=== PATIENT | female | born 1985 | race Caucasian/White ===

== ENCOUNTER 2018-02-08 13:56 | Emergency (ER) | payer OTHER ==
--- NOTE | 2018-02-08 14:19 | ER ---
Nurse's Notes [facility] Name: Lisbeth Morrow Age: 32 yrs Sex: Female : 1985 Arrival Date: 02/08/2018 Time: 13:59 Bed 23 Private MD: Jacoby Martinez E Diagnosis: Acute suppurative otitis media Presentation: 02/08 14:09 Presenting complaint: Patient states: Right ear pain for 2 days. Patient cannot see PCP aj for financial reasons. Transition of care: patient was not received from another setting of care. Onset of symptoms was February 07, 2018. Risk Assessment: Do you want to hurt yourself or someone else? Patient reports no desire to harm self or others. Care prior to arrival: None. 14:09 Method Of Arrival: Ambulatory aj 14:09 Acuity: CHERYL 4 aj 14:21 Initial Sepsis Screen: Does the patient meet any 2 criteria? No. Patient's initial tl3 sepsis screen is negative. Does the patient have a suspected source of infection? No. Patient's initial sepsis screen is negative. Triage Assessment: 14:10 General: Appears in no apparent distress. comfortable, Behavior is calm, cooperative, aj appropriate for age. Pain: Complains of pain in right ear. EENT: Reports pain in right ear. Neuro: Level of Consciousness is awake, alert, obeys commands, Oriented to person, place, time, situation, Appropriate for age. Respiratory: Airway is patent Respiratory effort is even, unlabored, Respiratory pattern is regular, symmetrical. Derm: Skin is intact, is healthy with good turgor, Skin is pink, warm \T\ dry. normal. 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 - Social history:: Smoking status: Patient/guardian denies using tobacco. - Ebola Screening: : Patient negative for fever greater than or equal to 101.5 degrees Fahrenheit, and additional compatible Ebola Virus Disease symptoms Patient denies exposure to infectious person Patient denies travel to an Ebola-affected area in the 21 days before illness onset No symptoms or risks identified at this time. Screenin:17 Abuse screen: Denies threats or abuse. Nutritional screening: No deficits noted. tl3 Tuberculosis screening: No symptoms or risk factors identified. Fall Risk None identified. Assessment: 14:17 General: Appears uncomfortable, well groomed, well developed, well nourished, Behavior tl3 is calm, cooperative, appropriate for age. Pain: Complains of pain in right ear. Neuro: Level of Consciousness is awake, alert, obeys commands, Oriented to person, place, time, situation, Appropriate for age. Cardiovascular: Heart tones S1 S2 present Patient's skin is warm and dry. Respiratory: Airway is patent Respiratory effort is even, unlabored, Respiratory pattern is regular, symmetrical, Breath sounds are clear bilaterally. GI: No deficits noted. No signs and/or symptoms were reported involving the gastrointestinal system. : No deficits noted. No signs and/or symptoms were reported regarding the genitourinary system. EENT: No deficits noted. No signs and/or symptoms were reported regarding the EENT system. Derm: No deficits noted. No signs and/or symptoms reported regarding the dermatologic system. Musculoskeletal: No deficits noted. No signs and/or symptoms reported regarding the musculoskeletal system. Vital Signs: 14:10 BP 130 / 82; Pulse 99; Resp 16; Temp 97.7; Pulse Ox 100% on R/A; Weight 68.04 kg; aj Height 5 ft. 2 in. (157.48 cm); 14:10 Body Mass Index 27.44 (68.04 kg, 157.48 cm) aj ED Course: 13:59 Patient arrived in ED. mr 13:59 Jacoby Martinez MD is Private Physician. mr 14:10 Triage completed. aj 14:10 Arm band placed on right wrist. Patient placed in an exam room. aj 14:12 Marialuisa Johnson, CLIF is Primary Nurse. tl3 14:13 Chris Josue PA is PHCP. jr8 14:13 Saud Stephens MD is Attending Physician. jr8 14:17 Patient has correct armband on for positive identification. Bed in low position. Call tl3 light in reach. Side rails up X 1. 14:17 No provider procedures requiring assistance completed. Patient did not have IV access tl3 during this emergency room visit. 14:18 Jacoby Martinez MD is Referral Physician. jr8 Administered Medications: No medications were administered Outcome: 14:18 Discharge ordered by . juan 14:21 Discharged to home ambulatory. tl3 14:21 Condition: stable 14:21 Discharge instructions given to patient, Instructed on discharge instructions, follow up and referral plans. medication usage, Demonstrated understanding of instructions, follow-up care, medications, Prescriptions given X 1. 14:22 Patient left the ED. tl3 Signatures: Renetta Guillen, RN RN Paty Rodriguez mr Chris Josue PA PA jr8 Marialuisa Johnson, CLIF RN tl3
--- NOTE | 2018-02-08 14:19 | EDPHYS ---
Physician Documentation [facility] Name: Lisbeth Morrow Age: 32 yrs Sex: Female : 1985 Arrival Date: 02/08/2018 Time: 13:59 Bed 23 Private MD: Jacoby Martinez E ED Physician Saud Stephens HPI: 02/08 14:16 This 32 yrs old Female presents to ER via Ambulatory with complaints of Ear jr8 Pain. 14:16 The patient presents with pain. The complaints affect the right ear. Onset: The jr8 symptoms/episode began/occurred acutely, 2 day(s) ago. Modifying factors: The symptoms are alleviated by nothing, the symptoms are aggravated by nothing. Associated signs and symptoms: The patient has no apparent associated signs or symptoms. Severity of symptoms: At their worst the symptoms were mild in the emergency department the symptoms are unchanged. The patient has not experienced similar symptoms in the past. The patient has not recently seen a physician. 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 - Social history:: Smoking status: Patient/guardian denies using tobacco. - Ebola Screening: : Patient negative for fever greater than or equal to 101.5 degrees Fahrenheit, and additional compatible Ebola Virus Disease symptoms Patient denies exposure to infectious person Patient denies travel to an Ebola-affected area in the 21 days before illness onset No symptoms or risks identified at this time. ROS: 14:16 Eyes: Negative for injury, pain, redness, and discharge, Neck: Negative for injury, jr8 pain, and swelling, Cardiovascular: Negative for chest pain, palpitations, and edema, Respiratory: Negative for shortness of breath, cough, wheezing, and pleuritic chest pain, Abdomen/GI: Negative for abdominal pain, nausea, vomiting, diarrhea, and constipation, Back: Negative for injury and pain, MS/Extremity: Negative for injury and deformity, Skin: Negative for injury, rash, and discoloration, Neuro: Negative for headache, weakness, numbness, tingling, and seizure. 14:16 ENT: Positive for drainage from ear(s), ear pain. Exam: 14:16 Head/Face: Normocephalic, atraumatic. Eyes: Pupils equal round and reactive to light, jr8 extra-ocular motions intact. Lids and lashes normal. Conjunctiva and sclera are non-icteric and not injected. Cornea within normal limits. Periorbital areas with no swelling, redness, or edema. Neck: Trachea midline, no thyromegaly or masses palpated, and no cervical lymphadenopathy. Supple, full range of motion without nuchal rigidity, or vertebral point tenderness. No Meningismus. Cardiovascular: Regular rate and rhythm with a normal S1 and S2. No gallops, murmurs, or rubs. Normal PMI, no JVD. No pulse deficits. Respiratory: Lungs have equal breath sounds bilaterally, clear to auscultation and percussion. No rales, rhonchi or wheezes noted. No increased work of breathing, no retractions or nasal flaring. 14:16 ENT: Exam is negative for nasal discharge, sinus tenderness, enlarged tonsils, pharyngitis, dental infection, exudate, abnormal voice, abnormal breath odor, External ear(s): are unremarkable, Ear canal(s): are normal, clear, TM's: bulging, on the right, dullness, on the right, erythema, on the right. Vital Signs: 14:10 BP 130 / 82; Pulse 99; Resp 16; Temp 97.7; Pulse Ox 100% on R/A; Weight 68.04 kg; aj Height 5 ft. 2 in. (157.48 cm); 14:10 Body Mass Index 27.44 (68.04 kg, 157.48 cm) aj MDM: 14:13 Patient medically screened. jr8 14:16 Data reviewed: vital signs, nurses notes, and as a result, I will discharge patient. jr8 Data interpreted: Pulse oximetry: on room air is 100 %. Interpretation: normal. Counseling: I had a detailed discussion with the patient and/or guardian regarding: the historical points, exam findings, and any diagnostic results supporting the discharge/admit diagnosis, the need for outpatient follow up, an ENT specialist, a family practitioner, to return to the emergency department if symptoms worsen or persist or if there are any questions or concerns that arise at home. Administered Medications: No medications were administered Disposition: 15:18 Co-signature as Attending Physician, Saud Stephens MD I agree with the assessment and kdr plan of care. Disposition: 02/08/18 14:18 Discharged to Home. Impression: Acute suppurative otitis media. - Condition is Stable. - Discharge Instructions: Otitis Media, Adult. - Prescriptions for Amoxicillin 875 mg Oral Tablet - take 1 tablet by ORAL route every 12 hours for 10 days; 20 tablet. - Medication Reconciliation Form, Thank You Letter, Antibiotic Education, Prescription Opioid Use form. - Follow up: Jacoby Martinez MD; When: 5 - 6 days; Reason: Recheck today's complaints, Continuance of care, Re-evaluation by your physician. - Problem is new. - Symptoms have improved. Signatures: Renetta Guillen, RN RN Saud Clayton MD MD [facility] Chris Josue PA PA jr8 Marialuisa Johnson RN RN tl3 Corrections: (The following items were deleted from the chart) 14:22 14:18 02/08/2018 14:18 Discharged to Home. Impression: Acute suppurative otitis media. tl3 Condition is Stable. Forms are Medication Reconciliation Form, Thank You Letter, Antibiotic Education, Prescription Opioid Use. Follow up: Jacoby Martinez; When: 5 - 6 days; Reason: Recheck today's complaints, Continuance of care, Re-evaluation by your physician. Problem is new. Symptoms have improved. jr8
== END 2018-02-08 14:22 | disposition home or self-care (01) ==
LOC: ER 13:56
DX: H66.001 Acute suppurative otitis media without spontaneous rupture of ear drum, right ear (principal); E11.9 Type 2 diabetes mellitus without complications; E03.9 Hypothyroidism, unspecified; Z79.4 Long term (current) use of insulin
CPT/HCPCS: 99282

== ENCOUNTER 2018-10-27 22:06 | Emergency (ER) | payer OTHER ==
--- NOTE | 2018-10-27 23:40 | EDPHYS ---
Physician Documentation [facility] Name: Lisbeth Morrow Age: 32 yrs Sex: Female : 1985 Arrival Date: 10/27/2018 Time: 22:07 Bed 13 Private MD: Jacoby Martinez E ED Physician Lorne Foster HPI: 10/27 23:28 This 32 yrs old Female presents to ER via Ambulatory with complaints of dalia Drainage From Ear. 23:28 The patient presents with drainage, a foreign body sensation, unk. The complaints dalia affect the right ear. Onset: The symptoms/episode began/occurred today. Modifying factors: The symptoms are alleviated by nothing, the symptoms are aggravated by nothing. Associated signs and symptoms: The patient has no apparent associated signs or symptoms. Severity of symptoms: At their worst the symptoms were mild in the emergency department the symptoms are unchanged. The patient has experienced similar episodes in the past, multiple times. 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 - Social history:: Smoking status: Patient/guardian denies using tobacco, never smoked. - Ebola Screening: : No symptoms or risks identified at this time. ROS: 23:28 Constitutional: Negative for fever, chills, and weight loss, Eyes: Negative for injury, dalia pain, redness, and discharge, Neck: Negative for injury, pain, and swelling, Cardiovascular: Negative for chest pain, palpitations, and edema, Respiratory: Negative for shortness of breath, cough, wheezing, and pleuritic chest pain, Abdomen/GI: Negative for abdominal pain, nausea, vomiting, diarrhea, and constipation, Back: Negative for injury and pain, : Negative for injury, bleeding, discharge, and swelling, MS/Extremity: Negative for injury and deformity, Skin: Negative for injury, rash, and discoloration, Neuro: Negative for headache, weakness, numbness, tingling, and seizure, Psych: Negative for depression, anxiety, suicide ideation, homicidal ideation, and hallucinations, Allergy/Immunology: Negative for hives, rash, and allergies, Endocrine: Negative for neck swelling, polydipsia, polyuria, polyphagia, and marked weight changes, Hematologic/Lymphatic: Negative for swollen nodes, abnormal bleeding, and unusual bruising. 23:28 ENT: Positive for drainage from ear(s), pulling at ears. Exam: 23:28 Constitutional: This is a well developed, well nourished patient who is awake, alert, dalia and in no acute distress. Head/Face: Normocephalic, atraumatic. Eyes: Pupils equal round and reactive to light, extra-ocular motions intact. Lids and lashes normal. Conjunctiva and sclera are non-icteric and not injected. Cornea within normal limits. Periorbital areas with no swelling, redness, or edema. Neck: Trachea midline, no thyromegaly or masses palpated, and no cervical lymphadenopathy. Supple, full range of motion without nuchal rigidity, or vertebral point tenderness. No Meningismus. Chest/axilla: Normal chest wall appearance and motion. Nontender with no deformity. No lesions are appreciated. Cardiovascular: Regular rate and rhythm with a normal S1 and S2. No gallops, murmurs, or rubs. Normal PMI, no JVD. No pulse deficits. Respiratory: Lungs have equal breath sounds bilaterally, clear to auscultation and percussion. No rales, rhonchi or wheezes noted. No increased work of breathing, no retractions or nasal flaring. Abdomen/GI: Soft, non-tender, with normal bowel sounds. No distension or tympany. No guarding or rebound. No evidence of tenderness throughout. Back: No spinal tenderness. No costovertebral tenderness. Full range of motion. Skin: Warm, dry with normal turgor. Normal color with no rashes, no lesions, and no evidence of cellulitis. MS/ Extremity: Pulses equal, no cyanosis. Neurovascular intact. Full, normal range of motion. Neuro: Awake and alert, GCS 15, oriented to person, place, time, and situation. Cranial nerves II-XII grossly intact. Motor strength 5/5 in all extremities. Sensory grossly intact. Cerebellar exam normal. Normal gait. Psych: Awake, alert, with orientation to person, place and time. Behavior, mood, and affect are within normal limits. 23:28 ENT: Ear canal(s): bleeding, TM's: dullness, erythema, loss of bony landmarks, that is moderate, on the right, Mouth: no acute changes, Lips: normal, Oral mucosa: normal, Gums: normal with healthy appearance, Tongue: is normal, Posterior pharynx: is normal, no acute changes, Dental exam: normal. Vital Signs: 22:20 BP 114 / 88; Pulse 94; Resp 19 S; Temp 98(O); Pulse Ox 98% on R/A; Weight 63.5 kg (R); cc3 Height 5 ft. 2 in. (157.48 cm) (R); 23:18 BP 117 / 85; Pulse 92; Resp 18 S; Pulse Ox 98% on R/A; cc3 22:20 Body Mass Index 25.61 (63.50 kg, 157.48 cm) cc3 MDM: 22:22 Patient medically screened. [facility] 23:38 Data reviewed: vital signs, nurses notes. [facility] Administered Medications: 23:30 Drug: Augmentin 875 mg Route: PO; cc3 23:45 Follow up: Response: No adverse reaction 3 Disposition: 10/27/18 23:39 Discharged to Home. Impression: Otitis media, unspecified, right ear, Otitis externa. - Condition is Stable. - Discharge Instructions: Otitis Media, Adult, Otitis Externa, Otitis Externa, [id number], Otitis Media, Adult, [id number], Ear Drops, Adult, [id number]. - Prescriptions for Augmentin 875- 125 mg Oral Tablet - take 1 tablet by ORAL route every 12 hours for 7 days; 14 tablet. Ciprodex 0.3- 0.1 % Otic Drops, Suspension - instill 4 drop by OTIC route every 12 hours for 7 days , for ears ONLY; 1 Container. - Medication Reconciliation Form, Thank You Letter, Antibiotic Education, Prescription Opioid Use form. - Follow up: Jacoby Martinez MD; When: 2 - 3 days; Reason: Recheck today's complaints, Continuance of care, Re-evaluation by your physician. - Problem is new. - Symptoms have improved. Signatures: Lorne Foster MD MD cha Cordel, Charlene cc3 Corrections: (The following items were deleted from the chart) 23:48 23:39 10/27/2018 23:39 Discharged to Home. Impression: Otitis media, unspecified, right cc3 ear; Otitis externa. Condition is Stable. Forms are Medication Reconciliation Form, Thank You Letter, Antibiotic Education, Prescription Opioid Use. Follow up: Jacoby Martinez; When: 2 - 3 days; Reason: Recheck today's complaints, Continuance of care, Re-evaluation by your physician. Problem is new. Symptoms have improved. dalia
--- NOTE | 2018-10-27 23:40 | ER ---
Nurse's Notes [facility] Name: Lisbeth Morrow Age: 32 yrs Sex: Female : 1985 Arrival Date: 10/27/2018 Time: 22:07 Bed 13 Private MD: Jacoby Martinez E Diagnosis: Otitis media, unspecified, right ear;Otitis externa Presentation: 10/27 22:33 Presenting complaint: Patient states: nontraumatic right ear bleeding since tonight. cc3 Transition of care: patient was not received from another setting of care. Onset of symptoms was October 27, 2018. Risk Assessment: Do you want to hurt yourself or someone else? Patient reports no desire to harm self or others. Initial Sepsis Screen: Does the patient meet any 2 criteria? No. Patient's initial sepsis screen is negative. Does the patient have a suspected source of infection? No. Patient's initial sepsis screen is negative. Care prior to arrival: None. 22:33 Method Of Arrival: Ambulatory cc3 22:33 Acuity: CHERYL 4 cc3 Triage Assessment: 22:20 General: Appears in no apparent distress. comfortable, Behavior is calm, cooperative, cc3 appropriate for age. Pain: Denies pain. EENT: Reports right ear bleeding. Neuro: Level of Consciousness is awake, alert, obeys commands, Oriented to person, place, time, situation, Appropriate for age. Cardiovascular: Patient's skin is warm and dry. Respiratory: Airway is patent Respiratory effort is even, unlabored, Respiratory pattern is regular, symmetrical. GI: Abdomen is round non-distended. : No signs and/or symptoms were reported regarding the genitourinary system. Derm: granuloma on left wrist and right side of trunk. Musculoskeletal: Circulation, motion, and sensation intact. Range of motion: intact in all extremities. 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 - Social history:: Smoking status: Patient/guardian denies using tobacco, never smoked. - Ebola Screening: : No symptoms or risks identified at this time. Screenin:20 Abuse screen: Denies threats or abuse. Denies injuries from another. Nutritional cc3 screening: No deficits noted. Tuberculosis screening: No symptoms or risk factors identified. Fall Risk Ambulatory Aid- None/Bed Rest/Nurse Assist (0 pts). Gait- Normal/Bed Rest/Wheelchair (0 pts) Mental Status- Oriented to own ability (0 pts). Assessment: 22:20 General: see triage assessment. cc3 23:45 Reassessment: Patient appears in no apparent distress at this time. Patient and/or cc3 family updated on plan of care and expected duration. Pain level reassessed. Patient is alert, oriented x 3, equal unlabored respirations, skin warm/dry/pink. Dr. Foster discharged the patient home with prescription given. No IV cannula in situ. Patient left ER vitally stable and ambulatory. Vital Signs: 22:20 BP 114 / 88; Pulse 94; Resp 19 S; Temp 98(O); Pulse Ox 98% on R/A; Weight 63.5 kg (R); cc3 Height 5 ft. 2 in. (157.48 cm) (R); 23:18 BP 117 / 85; Pulse 92; Resp 18 S; Pulse Ox 98% on R/A; cc3 22:20 Body Mass Index 25.61 (63.50 kg, 157.48 cm) cc3 ED Course: 22:07 Patient arrived in ED. am2 22:08 Jacoby Martinez MD is Private Physician. am2 22:19 Brandi Garcia is Primary Nurse. cc3 22:20 Arm band placed on right wrist. Patient notified of wait time. cc3 22:20 Patient has correct armband on for positive identification. Bed in low position. Call cc3 light in reach. Side rails up X 1. Pulse ox on. NIBP on. 22:22 Lorne Foster MD is Attending Physician. dalia 22:35 Triage completed. cc3 23:38 Jacoby Martinez MD is Referral Physician. dalia 23:45 No provider procedures requiring assistance completed. Patient did not have IV access cc3 during this emergency room visit. Administered Medications: 23:30 Drug: Augmentin 875 mg Route: PO; cc3 23:45 Follow up: Response: No adverse reaction cc3 Outcome: 23:39 Discharge ordered by MD. gómez 23:45 Discharged to home ambulatory. cc3 23:45 Condition: stable 23:45 Discharge instructions given to patient, Instructed on discharge instructions, follow up and referral plans. medication usage, Demonstrated understanding of instructions, follow-up care, medications, Prescriptions given X 2. 23:48 Patient left the ED. cc3 Signatures: Lorne Foster MD MD cha Moreno, Amanda am2 Cordel, Charlene cc3
[2018-10-27] MEDS ORDERED: AMOX/K CLAV 875 MG TAB ONE (23:41)
== END 2018-10-27 23:48 | disposition home or self-care (01) ==
LOC: ER 22:06
DX: H66.91 Otitis media, unspecified, right ear (principal); H60.90 Unspecified otitis externa, unspecified ear; E11.9 Type 2 diabetes mellitus without complications; E03.9 Hypothyroidism, unspecified; Q96.9 Turner's syndrome, unspecified; Z79.4 Long term (current) use of insulin
CPT/HCPCS: 99283

== ENCOUNTER 2019-07-28 17:34 | Emergency (ER) | payer OTHER ==
--- NOTE | 2019-07-28 19:06 | RAD REPORT ---
EXAM DESCRIPTION: RAD - Wrist Left 3 View - 07/28/2019 6:58 pm CLINICAL HISTORY: Left wrist pain status post injury FINDINGS: Mildly displaced fracture involves the distal radius. Nondisplaced fracture ulnar styloid process No dislocation
--- NOTE | 2019-07-28 19:10 | RAD REPORT ---
EXAM DESCRIPTION: RAD - Wrist Right 3 View - 07/28/2019 6:58 pm CLINICAL HISTORY: Right wrist pain status post injury FINDINGS: No fracture or dislocation is seen. If the patient continues to have symptoms to suggest a n occult fracture then a followup plain film series in 7 days would be recommended.
--- NOTE | 2019-07-28 19:35 | ER ---
Nurse's Notes [facility] Name: Lisbeth Morrow Age: 33 yrs Sex: Female : 1985 Arrival Date: 07/28/2019 Time: 17:36 Bed 11 Private MD: Diagnosis: Mildly displaced fracture distal left radius;Nondisplaced fracture of left ulna styloid process Presentation: 07/28 17:50 Presenting complaint: Slipped while exiting vehicle last night, fell onto outstretched hb hands, c/o left wrist and right hand pain 05/08. Transition of care: patient was not received from another setting of care. Onset of symptoms was July 27, 2019. Risk Assessment: Do you want to hurt yourself or someone else? Patient reports no desire to harm self or others. Initial Sepsis Screen: Does the patient meet any 2 criteria? No. Patient's initial sepsis screen is negative. Does the patient have a suspected source of infection? No. Patient's initial sepsis screen is negative. Care prior to arrival: Aleve at 1200 today. 17:50 Method Of Arrival: Ambulatory hb 17:50 Acuity: CHERYL 4 hb Triage Assessment: 17:55 General: Appears in no apparent distress. Behavior is calm, cooperative. Pain: Pain hb currently is 9 out of 10 on a pain scale. EENT: No signs and/or symptoms were reported regarding the EENT system. Neuro: Level of Consciousness is awake, alert, obeys commands, Oriented to person, place, time, situation. Cardiovascular: Capillary refill < 3 seconds Patient's skin is warm and dry. Respiratory: Airway is patent Respiratory effort is even, unlabored, Respiratory pattern is regular, symmetrical. GI: No signs and/or symptoms were reported involving the gastrointestinal system. : No signs and/or symptoms were reported regarding the genitourinary system. Derm: Skin is pink, warm \T\ dry. Musculoskeletal: Reports left wrist and right hand pain. 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 - Social history:: Smoking status: Patient/guardian denies using tobacco. - Ebola Screening: : No symptoms or risks identified at this time. Screenin:00 Abuse screen: Denies threats or abuse. Denies injuries from another. Nutritional hb screening: No deficits noted. Tuberculosis screening: No symptoms or risk factors identified. Fall Risk None identified. Assessment: 17:55 General: see triage . hb 18:45 Reassessment: Patient appears in no apparent distress at this time. Patient and/or hb family updated on plan of care and expected duration. Pain level reassessed. Patient is alert, oriented x 3, equal unlabored respirations, skin warm/dry/pink. 19:30 General: Appears in no apparent distress. uncomfortable, Behavior is calm, cooperative, jd3 appropriate for age. Pain: Complains of pain in left wrist Quality of pain is described as aching. Neuro: Level of Consciousness is awake, alert, obeys commands, Oriented to person, place, time, situation. Cardiovascular: Capillary refill < 3 seconds Patient's skin is warm and dry. Respiratory: Airway is patent Respiratory effort is even, unlabored, Respiratory pattern is regular, symmetrical. GI: No signs and/or symptoms were reported involving the gastrointestinal system. : No signs and/or symptoms were reported regarding the genitourinary system. EENT: No signs and/or symptoms were reported regarding the EENT system. Derm: Skin is intact, Skin is dry, Skin is normal, Skin temperature is warm. Musculoskeletal: Circulation, motion, and sensation intact. Range of motion: limited in left wrist. 20:03 Reassessment: Patient appears in no apparent distress at this time. Patient and/or jd3 family updated on plan of care and expected duration. Pain level reassessed. Patient is alert, oriented x 3, equal unlabored respirations, skin warm/dry/pink. reported understanding of discharge instructions. Vital Signs: 17:52 BP 134 / 93; Pulse 102; Resp 16; Temp 97.3; Pulse Ox 100% on R/A; Weight 65.77 kg; hb Height 5 ft. 2 in. (157.48 cm); Pain 9/10; 20:03 Pulse 95; Resp 17 S; Pulse Ox 100% on R/A; jd3 17:52 Body Mass Index 26.52 (65.77 kg, 157.48 cm) ED Course: 17:36 Patient arrived in ED. as 17:51 Triage completed. hb 17:52 Arm band placed on. hb 17:55 Jorge Cruz NP is PHCP. pm1 17:55 Perico Bro MD is Attending Physician. pm1 18:00 Patient has correct armband on for positive identification. Call light in reach. hb 18:57 Ana Sinha, RN is Primary Nurse. hb 18:58 Wrist Right 3 View XRAY In Process Unspecified. EDMS 18:58 Wrist Left (3 View) XRAY In Process Unspecified. EDMS 19:59 No provider procedures requiring assistance completed. Patient did not have IV access jd3 during this emergency room visit. Alexys wrap to left wrist Orthoglass splint: Sugar tong splint applied on left arm. 20:00 Sling applied to left arm. jd3 Administered Medications: 19:59 Not Given (Physician Discretion): [place] 5 mg-325 mg 1 tabs PO once; RASS on ADMIN: jd3 Combtv4, Very Agttd3, Agttd2, Rstlss1, AlertClm0, Drwsy-1, Lt Sdtn-2, Mod Sdtn-3, Dp Sdtn-4, UnArsble-5 Outcome: 19:34 Discharge ordered by . pm1 20:00 Discharged to home ambulatory. jd3 20:00 Condition: stable 20:00 Discharge instructions given to patient, Instructed on discharge instructions, follow up and referral plans. medication usage, Demonstrated understanding of instructions, follow-up care, medications, Prescriptions given X 1. 20:04 Patient left the ED. jd3 Signatures: Dispatcher [employer] EDMS Leah Chaudhry as Jorge Cruz, MOODY HAY FARMER pm1 Ana Sinha, RN RN Hernan Rivera RN RN jd3
--- NOTE | 2019-07-28 19:36 | EDPHYS ---
Physician Documentation [facility] Name: Lisbeth Morrow Age: 33 yrs Sex: Female : 1985 Arrival Date: 07/28/2019 Time: 17:36 Bed 11 Private MD: ED Physician Perico Bro HPI: 07/28 19:15 This 33 yrs old Female presents to ER via Ambulatory with complaints of Wrist pm1 Injury. 19:15 The patient or guardian reports pain. The complaints affect the left wrist diffusely, pm1 right wrist diffusely. Context: The problem was sustained outdoors, resulted from slipped getting out of her car and fell on both hands. No head injury. 19:15 Onset: The symptoms/episode began/occurred last night. Modifying factors: The symptoms pm1 are alleviated by holding still, the symptoms are aggravated by movement. Associated signs and symptoms: Pertinent negatives: cyanosis distally, decreased sensation distally, numbness distally, tingling distally. The patient has not experienced similar symptoms in the past. It is unknown whether or not the patient has recently seen a physician. 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 - Social history:: Smoking status: Patient/guardian denies using tobacco. - Ebola Screening: : No symptoms or risks identified at this time. ROS: 19:15 Constitutional: Negative for fever, chills, and weight loss, Neck: Negative for injury, pm1 pain, and swelling, Cardiovascular: Negative for chest pain, palpitations, and edema, Respiratory: Negative for shortness of breath, cough, wheezing, and pleuritic chest pain, Abdomen/GI: Negative for abdominal pain, nausea, vomiting, diarrhea, and constipation, Back: Negative for injury and pain. 19:15 Skin: Negative for injury, rash, and discoloration, Neuro: Negative for headache, weakness, numbness, tingling, and seizure. 19:15 MS/extremity: Positive for pain, of the left wrist and right wrist, left wrist worse than right. Exam: 19:15 Constitutional: This is a well developed, well nourished patient who is awake, alert, pm1 and in no acute distress. Head/Face: Normocephalic, atraumatic. Neck: Trachea midline, no thyromegaly or masses palpated, and no cervical lymphadenopathy. Supple, full range of motion without nuchal rigidity, or vertebral point tenderness. No Meningismus. Chest/axilla: Normal chest wall appearance and motion. Nontender with no deformity. No lesions are appreciated. Cardiovascular: Regular rate and rhythm with a normal S1 and S2. No gallops, murmurs, or rubs. Normal PMI, no JVD. No pulse deficits. Respiratory: Lungs have equal breath sounds bilaterally, clear to auscultation and percussion. No rales, rhonchi or wheezes noted. No increased work of breathing, no retractions or nasal flaring. Back: No spinal tenderness. No costovertebral tenderness. Full range of motion. Skin: Warm, dry with normal turgor. Normal color with no rashes, no lesions, and no evidence of cellulitis. 19:15 Musculoskeletal/extremity: Extremities: grossly normal except: noted in the left wrist: swelling, tenderness, noted in the right wrist: no evidence of decreased ROM, deformity, swelling, tenderness. Vital Signs: 17:52 BP 134 / 93; Pulse 102; Resp 16; Temp 97.3; Pulse Ox 100% on R/A; Weight 65.77 kg; hb Height 5 ft. 2 in. (157.48 cm); Pain 9/10; 20:03 Pulse 95; Resp 17 S; Pulse Ox 100% on R/A; jd3 17:52 Body Mass Index 26.52 (65.77 kg, 157.48 cm) hb MDM: 18:10 Patient medically screened. pm1 19:32 Data reviewed: vital signs. Data interpreted: Pulse oximetry: on room air is 100 %. pm1 Interpretation: normal. Counseling: I had a detailed discussion with the patient and/or guardian regarding: the historical points, exam findings, and any diagnostic results supporting the discharge/admit diagnosis, radiology results, the need for outpatient follow up, for definitive care, a orthopedic surgeon, to return to the emergency department if symptoms worsen or persist or if there are any questions or concerns that arise at home. 07/28 18:19 Order name: Wrist Right 3 View XRAY; Complete Time: 19:15 pm1 07/28 18:19 Order name: Wrist Left (3 View) XRAY; Complete Time: 19:15 pm1 07/28 19:07 Order name: Sugar Tong Forearm Splint; Complete Time: 19:40 pm1 07/28 19:43 Order name: Sling; Complete Time: 19:59 pm1 Administered Medications: 19:59 Not Given (Physician Discretion): [place] 5 mg-325 mg 1 tabs PO once; RASS on ADMIN: jd3 Combtv4, Very Agttd3, Agttd2, Rstlss1, AlertClm0, Drwsy-1, Lt Sdtn-2, Mod Sdtn-3, Dp Sdtn-4, UnArsble-5 Disposition: 07/28/19 19:34 Discharged to Home. Impression: Mildly displaced fracture distal left radius, Nondisplaced fracture of left ulna styloid process. - Condition is Stable. - Discharge Instructions: Cast or Splint Care, Adult, Wrist Fracture Treated With Immobilization, How to Use a Sling. - Prescriptions for Tylenol- Codeine #3 300-30 mg Oral Tablet - take 2 tablets by ORAL route every 6 hours As needed; 20 tablet. - Work release form, Medication Reconciliation Form, Thank You Letter, Antibiotic Education, Prescription Opioid Use form. - Follow up: Emergency Department; When: As needed; Reason: Worsening of condition. Follow up: Private Physician; When: 2 - 3 days; Reason: Recheck today's complaints, Continuance of care, Re-evaluation by your physician. - Problem is new. - Symptoms have improved. Addendum: 07/30/2019 07:40 Co-signature as Attending Physician, Perico Bro MD. r n Signatures: Dispatcher [employer] EDMS Perico Bro MD MD rn Marinas, Patrick, MOODY DIALYSIS BIOMED TECHNICIAN pm1 Ana Sinha RN RN hb Davies, Jonathon, RN RN jd3 Corrections: (The following items were deleted from the chart) 07/28 19:35 19:07 Splint - Wrist ordered. pm1 pm1 20:04 19:34 07/28/2019 19:34 Discharged to Home. Impression: Mildly displaced fracture distal jd3 left radius; Nondisplaced fracture of left ulna styloid process. Condition is Stable. Forms are Medication Reconciliation Form, Thank You Letter, Antibiotic Education, Prescription Opioid Use. Follow up: Emergency Department; When: As needed; Reason: Worsening of condition. Follow up: Private Physician; When: 2 - 3 days; Reason: Recheck today's complaints, Continuance of care, Re-evaluation by your physician. Problem is new. Symptoms have improved. pm1
[2019-07-28 20:13] VITALS: BP 134/93; TEMP 97.3; O2SAT 100
== END 2019-07-28 20:04 | disposition home or self-care (01) ==
LOC: ER 17:34
PROC: 2W3DX1Z Immobilization of Left Lower Arm using Splint (ICD-10-PCS; principal; 2019-07-28)
DX: S52.592A Other fractures of lower end of left radius, initial encounter for closed fracture (principal); S52.615A Nondisplaced fracture of left ulna styloid process, initial encounter for closed fracture; W01.0XXA Fall on same level from slipping, tripping and stumbling without subsequent striking against object, initial encounter; Y93.89 Activity, other specified; Y92.89 Other specified places as the place of occurrence of the external cause; E03.9 Hypothyroidism, unspecified; E11.9 Type 2 diabetes mellitus without complications; Z79.4 Long term (current) use of insulin
CPT/HCPCS: 99283